=== PATIENT | male | born 1995 | race Caucasian/White ===

== ENCOUNTER 2024-09-17 12:02 | Emergency (ER) | payer OTHER, SELFPAY ==
[2024-09-17] VITALS (52 sets, daily range): BP systolic 96–138; BP diastolic 58–90; PULSE 39–77; RESP 10–42; TEMP 37.3; O2SAT 78–100; BMI 20.5
--- NOTE | 2024-09-17 13:18 | EKG_ITS ---
[address] [address] Test Date: 2024-09-17 Pat Name: Lucio Perez Department: Room: Gender: Male Tax Professional: JULIA : 1995 Requested By: Order Number: [id number] Reading MD: Carlos Rodriguez Measurements Intervals [place] Rate: 41 P: 49 UT: QRS: 99 QRSD: 100 T: 16 QT: 536 QTc: 442 Interpretive Statements Sinus bradycardia Rightward axis T wave abnormality, consider anterior ischemia ED Note documents. Electronically Signed On 09-18-2024 8:32:51 PST by Carlos Rodriguez
[2024-09-17 13:30] LABS: Add Manual Diff / Slide Review NO; Basophils Absolute Auto 0 /uL (0-100); Basophils Percent Auto 0.4 % (0-2); Eosinophils Absolute Auto 0 /uL (0-450); Eosinophils Percent Auto 0.4 % (2-4); Hematocrit 42.8 % (41-53); Hemoglobin 14.5 g/dL (13.5-17.5); Lymphocytes Absolute Auto 1000 /uL (1100-4500); Mean Corpuscular HGB Conc 33.8 % (30-36); Mean Corpuscular Hemoglobin 30.5 PG (26-34); Monocytes Absolute Auto 300 /uL (0-900); Monocytes Percent Auto 4.3 % (3-14); Neutrophils Absolute Auto 5700 /uL (1500-7000); Neutrophils Percent Auto 80.9 % (50-75); Platelet Count 181 X10^3/uL (150-400); Red Blood Cell Count 4.75 X10^6/uL (4.5-5.9); Red Cell Distribution Width 12.7 % (11.6-14.8)
[2024-09-17] MEDS: ONDANSETRON 4 MG/2 ML INJ IV (13:30)
[2024-09-17] MEDS: LORazepam 2 MG/ML INJ 0.5 MG IV (13:30)
--- NOTE | 2024-09-17 13:30 | PC.NURSE ---
Spoke to Neha, Pharmacist, at [facility] @ [id number]. Pt states he consumes 100 tablets of Kratom daily, last dose yesterday per pt. Poison Control advised cardiac labs, liver panel, NS fluids, Benzos for withdrawal symptoms, EKG and potential for seizures. Physician advised of Poison Control advice/feedback. Seizure pads applied to bed.
[2024-09-17 13:43] LABS: Lactate (Lactic Acid) 1.5 mmol/L (0.7-2.1)
[2024-09-17 13:44] LABS: Alanine Aminotransferase 32 IU/L (<50); Albumin 4.4 g/dL (3.5-5.0); Albumin Globulin Ratio 1.6 (1.0-2.8); Alkaline Phosphatase 70 U/L (38-126); Aspartate Aminotransferase 45 IU/L (17-59); BUN Creatinine Ratio 11.8 (6-22); Bilirubin Total 0.5 mg/dL (0.2-1.3); Blood Urea Nitrogen 9 mg/dL (9-20); Calcium 8.6 mg/dL (8.4-10.2); Carbon Dioxide 23 mmol/L (22-32); Chloride 107 mmol/L (98-107); Creatine Kinase 251 U/L (55-170); Estimated Glomerular Filt Rate > 60 mL/min (>60); Globulin 2.7 g/dL (1.7-4.1); Glucose 125 mg/dL (70-100); HEMOLYSIS < 15 (0-50); Lipase 174 U/L (23-300); Potassium 3.3 mmol/L (3.4-5.1); Sodium 139 mmol/L (137-145); Total Protein 7.1 g/dL (6.3-8.2)
[2024-09-17 13:55] LABS: Troponin I < 0.012 ng/mL (0.01-0.034)
[2024-09-17] MEDS: SODIUM CHLORIDE 0.9% 1,000 ML 1000 ML IV (13:55)
--- NOTE | 2024-09-17 14:12 | CM.SWNOTE ---
ED PIANO CASE AND BENCH ASSEMBLER Assessment PIANO CASE AND BENCH ASSEMBLER - Second Facing Baster Assessment PIANO CASE AND BENCH ASSEMBLER/Second Facing Baster Assessment Time Spent with Patient Start date 09/17/24 Visit Start Time 13:40 End date 09/17/24 Visit End Time 13:50 Total time Care Management spent on 10 minutes patient visit-in minutes Substance Abuse Screening Include Onset, Duration, Intensity Presenting Problem Patient presents to ED via POV with family due to concern for withdrawals from Kratom. Patient endorses daily use of 80-100 capsules, last use was last night. Patient endorses he is seeking detox for this. Precipitating Event(s) Patient states he doesn't like Kratom, doesn't like how it makes him feel. Patient states I just want to feel normal . Patient states that Kratom use has impacted his daily functioning. Patient Strengths Patient has support from family, patient is seeking help. Current Behavioral Health Provider(s) None reported Include Facility, Provider, Ph. # Family Hx of Behavioral Abuse None reported Rehab Facilities? ((Date(s), Location(s) No hx ) History of Withdrawal? Seizures? Patient endorses hx of throwing up bile, numbness of fingers, soreness, and fatigue . Patient denies hx of seizures. Patient presents with shakiness. Longest Period of Sobriety Patient states that he has been using Kratom for 4 years. Psychosocial information & Support Patient is 29 y/o male who Systems resides in [facility] with spouse and family. School/Work Unemployed Legal Concerns Legal Matters - Outstanding Issues None reported Mental Status Orientation (Person/Place/Time) A/Ox4 Stated Mood I want to feel normal Affect (Congruent with Mood?) euthymic, fatigued, congruent with mood Thought Content - Specify/Describe None reported Obsessions, Delusions, Hallucinations Thought Processes (Cpbfczu-Vruvjklf-Ilzf goal oriented, coherent Wrjdjpap-Pxvjzyww-Gajllvpjjf- Qstvchedyjvlfp-Okpppaj-Utoamakwemkw- Thought Blocking) Speech (Ekuqvl-Ejtz-Pvlbtji-Rapid-Soft- normal, soft Loud-Pressured) Motor (Waczwt-Qjicueqmc-Jpgv-Other) Patient is laying down under blankets shaking. Insight (Vjkd-Xftk-Znqv/Limited) fair Judgement (Jtox-Fkvw-Nonl/Limited) fair Impulse Control (Adequate-Impaired) adequate Memory (Ufsxcktxj-Spmjao-Gccsza, intact, not formally assessed Impaired-Intact) Concentration (Intact-Impaired) intact Attention (Intact-Impaired) intact Behavior (Appropriate-Inappropriate) appropriate Additional Comment patient presents as calm, cooperative and communicative. Risk Assessment Suicidal Ideation (Plan) No Homicidal Ideation (Plan) No Intervention Intervention PIANO CASE AND BENCH ASSEMBLER enters room to meet with patient in room. Patient endorses he is withdrawing from kratom and seeking detox. Patient endorses that his regular use is impacting daily life and he is wanting to stop using the substance. PIANO CASE AND BENCH ASSEMBLER calls [facility] and it is reported that they can review patient and conduct phone screening. Patient does phone screening process with [facility]. It is the opinion of this PIANO CASE AND BENCH ASSEMBLER that patient would benefit from and is appropriate for detox. PIANO CASE AND BENCH ASSEMBLER reviews this with ED provider Dr. Smith who indicates agreement and understanding. Awaiting medical clearance at this time. Plan RA Plan PIANO CASE AND BENCH ASSEMBLER to seek detox placement for patient upon medical clearance, PIANO CASE AND BENCH ASSEMBLER to fax [facility] clinicals for review upon medical clearance. Paty Bennett, STOCK ASSOCIATE
--- NOTE | 2024-09-17 14:46 | ED_ITS ---
HPI - Abdominal Pain <Luz Smith DO - Last Filed: 09/19/24 07:00> General Chief Complaint: Toxicology Problem Stated Complaint: Withdrawal Symptoms Time Seen by Provider: 09/17/24 14:45 Source: patient Mode of arrival: Ambulatory History of Present Illness HPI narrative: Patient is a 29-year-old male history of polysubstance abuse. He has been using Kartom for about 3 years taking about 100 pills a day. He stopped taking yesterday. He is currently vomiting. Feels very restless taking. He denies any passing out no abdominal pain no shortness of breath no other symptoms. Would like detox Sounds like he is previously used other substances such as heroin Related Data Allergies Allergy/AdvReac Type Severity Reaction Status Date / Time No Known Drug Allergies Allergy Verified 09/17/24 12:18 Patient History <Luz Smith DO - Last Filed: 09/19/24 07:00> Social History Smoking Status: Current every day smoker Smoking Status: Current every day smoker tobacco type: cigarettes Exam <Luz Smith DO - Last Filed: 09/19/24 07:00> Initial Vital Signs Initial Vital Signs: Vital Signs Temperature 99.2 F 09/17/24 12:18 Pulse Rate 53 L 09/17/24 12:18 Respiratory Rate 20 09/17/24 12:18 Blood Pressure 135/90 09/17/24 12:18 Pulse Oximetry 98 09/17/24 12:18 Oxygen Delivery Method Room Air 09/17/24 12:18 GENERAL: and in [no acute] distress. HEENT: Head atraumatic,EOMI, pupils reactive, face symmetric, [moist] mucous membranes CARDIOVASCULAR: Regular rate and rhythm without murmurs, rubs or gallops. RESPIRATORY: Breath sounds equal bilaterally, no wheezes rales or rhonchi. ABDOMEN: Soft, nontender. Normoactive bowel sounds all 4 quadrants. No guarding or rebound. EXTREMITIES: Normal range of motion, no clubbing or edema. Neurovascularly intact NEUROLOGICAL: Alert and oriented x4.Normal gait and speech. Cranial nerves II through XII grossly intact. SKIN: Warm, dry, no laceration, no petechiae, no rashes or lesions. <Mani Domínguez MD - Last Filed: 09/18/24 14:18> Initial Vital Signs Initial Vital Signs: Vital Signs Temperature 99.2 F 09/17/24 12:18 Pulse Rate 53 L 09/17/24 12:18 Respiratory Rate 20 09/17/24 12:18 Blood Pressure 135/90 09/17/24 12:18 Pulse Oximetry 98 09/17/24 12:18 Oxygen Delivery Method Room Air 09/17/24 12:18 Course <Luz Smith DO - Last Filed: 09/19/24 07:00> Orders Ordered: Discontinued Medications Sodium Chloride (Normal Saline 0.9%) 1,000 mls @ 1,000 mls/hr IV BOLUS ONE Stop: 09/17/24 14:19 Last Infusion: 09/17/24 15:40 Dose: Infused Documented By: Admin: 09/17/24 13:55 Dose: 1,000 mls/hr Documented By: GUSTAVO Lorazepam (Lorazepam 2 Mg/Ml Inj) 0.5 mg IV NOW ONE Stop: 09/17/24 13:21 Last Admin: 09/17/24 13:30 Dose: 0.5 mg Documented By: GUSTAVO Lorazepam (Lorazepam 2 Mg/Ml Inj) 1 mg IV NOW ONE Stop: 09/17/24 16:46 Last Admin: 09/17/24 16:49 Dose: 1 mg Documented By: KAROL Lorazepam (Lorazepam 0.5 Mg Tablet) 1 mg PO NOW ONE Stop: 09/17/24 19:10 Last Admin: 09/17/24 19:21 Dose: 1 mg Documented By: AARTI Lorazepam (Lorazepam 2 Mg/Ml Inj) 1 mg IV Q2HR PRN PRN Reason: Agitation Last Admin: 09/17/24 22:57 Dose: 1 mg Documented By: Admin: 09/17/24 20:54 Dose: 1 mg Documented By: AARTI Lorazepam (Lorazepam 0.5 Mg Tablet) 1 mg PO NOW ONE Stop: 09/18/24 04:41 Last Admin: 09/18/24 04:45 Dose: 1 mg Documented By: DIDIER Ondansetron HCl (Ondansetron 4 Mg/2 Ml Inj) 4 mg IV NOW ONE Stop: 09/17/24 13:21 Last Admin: 09/17/24 13:30 Dose: 4 mg Documented By: GUSTAVO Potassium Chloride (Potassium Chloride 20 Meq/15 Ml Udc) 40 meq PO NOW ONE Stop: 09/17/24 19:45 Last Admin: 09/17/24 20:53 Dose: 40 meq Documented By: LS Vital Signs Vital signs: Vital Signs - 8 hr 09/17/24 21:00 09/17/24 21:00 09/17/24 21:15 Pulse Rate 44 L 77 Respiratory Rate 36 H 33 H Blood Pressure 122/81 Pulse Oximetry Oxygen Delivery Method 09/17/24 21:15 09/17/24 21:30 09/17/24 21:30 Pulse Rate 52 L Respiratory Rate 22 Blood Pressure 134/88 129/82 Pulse Oximetry Oxygen Delivery Method 09/17/24 21:32 09/17/24 21:45 09/17/24 21:48 Pulse Rate 64 60 Respiratory Rate 28 H Blood Pressure 115/63 Pulse Oximetry 78 L Oxygen Delivery Method 09/17/24 22:00 09/17/24 22:01 09/17/24 22:01 Pulse Rate 47 L 50 L Respiratory Rate 29 H 25 H Blood Pressure 128/80 Pulse Oximetry 97 94 Oxygen Delivery Method Room Air Room Air 09/17/24 22:15 09/17/24 22:15 09/17/24 22:30 Pulse Rate 51 L 47 L Respiratory Rate 23 24 Blood Pressure 103/58 L Pulse Oximetry 97 96 Oxygen Delivery Method Room Air Room Air 09/17/24 22:30 09/17/24 22:30 09/17/24 22:45 Pulse Rate 47 L 47 L Respiratory Rate 22 24 Blood Pressure 114/62 Pulse Oximetry 97 98 Oxygen Delivery Method Room Air Room Air 09/17/24 22:45 09/17/24 23:00 09/17/24 23:00 Pulse Rate 48 L Respiratory Rate 22 Blood Pressure 119/75 115/62 Pulse Oximetry 96 Oxygen Delivery Method Room Air 09/17/24 23:15 09/17/24 23:15 09/17/24 23:30 Pulse Rate 49 L Respiratory Rate 24 Blood Pressure 122/68 114/59 L Pulse Oximetry 99 Oxygen Delivery Method Room Air 09/17/24 23:30 09/17/24 23:45 09/17/24 23:45 Pulse Rate 52 L 54 L Respiratory Rate 24 14 Blood Pressure 110/61 Pulse Oximetry 99 97 Oxygen Delivery Method Room Air Room Air 09/18/24 00:00 09/18/24 00:01 09/18/24 00:01 Pulse Rate 60 86 Respiratory Rate 14 14 Blood Pressure 118/76 Pulse Oximetry 97 97 Oxygen Delivery Method Room Air Room Air 09/18/24 00:15 09/18/24 00:15 09/18/24 00:30 Pulse Rate 47 L Respiratory Rate 16 Blood Pressure 122/74 119/76 Pulse Oximetry 94 Oxygen Delivery Method Room Air 09/18/24 00:30 09/18/24 00:45 09/18/24 00:45 Pulse Rate 50 L 50 L Respiratory Rate 33 H 32 H Blood Pressure 122/78 Pulse Oximetry 97 94 Oxygen Delivery Method Room Air Room Air 09/18/24 01:00 09/18/24 01:00 09/18/24 01:15 Pulse Rate 50 L 52 L Respiratory Rate 24 30 H Blood Pressure 114/74 Pulse Oximetry 97 95 Oxygen Delivery Method Room Air Room Air 09/18/24 01:15 09/18/24 01:30 09/18/24 01:30 Pulse Rate 51 L Respiratory Rate 28 H Blood Pressure 125/70 108/64 Pulse Oximetry 97 Oxygen Delivery Method Room Air 09/18/24 01:45 09/18/24 01:45 09/18/24 02:00 Pulse Rate 49 L Respiratory Rate 24 Blood Pressure 125/67 115/58 L Pulse Oximetry 97 Oxygen Delivery Method Room Air 09/18/24 02:15 09/18/24 02:15 09/18/24 02:30 Pulse Rate 52 L 47 L Respiratory Rate Blood Pressure 105/69 Pulse Oximetry Oxygen Delivery Method 09/18/24 02:30 09/18/24 02:45 09/18/24 02:45 Pulse Rate 52 L Respiratory Rate 28 H Blood Pressure 108/67 114/62 Pulse Oximetry Oxygen Delivery Method 09/18/24 03:00 09/18/24 03:00 09/18/24 03:15 Pulse Rate 53 L Respiratory Rate 18 Blood Pressure 111/55 L 113/60 Pulse Oximetry Oxygen Delivery Method 09/18/24 03:15 09/18/24 03:26 09/18/24 03:30 Pulse Rate 51 L 46 L Respiratory Rate 20 18 Blood Pressure 113/70 Pulse Oximetry Oxygen Delivery Method <Mani Domínguez MD - Last Filed: 09/18/24 14:18> Orders Ordered: Discontinued Medications Sodium Chloride (Normal Saline 0.9%) 1,000 mls @ 1,000 mls/hr IV BOLUS ONE Stop: 09/17/24 14:19 Last Infusion: 09/17/24 15:40 Dose: Infused Documented By: Admin: 09/17/24 13:55 Dose: 1,000 mls/hr Documented By: GUSTAVO Lorazepam (Lorazepam 2 Mg/Ml Inj) 0.5 mg IV NOW ONE Stop: 09/17/24 13:21 Last Admin: 09/17/24 13:30 Dose: 0.5 mg Documented By: GUSTAVO Lorazepam (Lorazepam 2 Mg/Ml Inj) 1 mg IV NOW ONE Stop: 09/17/24 16:46 Last Admin: 09/17/24 16:49 Dose: 1 mg Documented By: KAROL Lorazepam (Lorazepam 0.5 Mg Tablet) 1 mg PO NOW ONE Stop: 09/17/24 19:10 Last Admin: 09/17/24 19:21 Dose: 1 mg Documented By: AARTI Lorazepam (Lorazepam 2 Mg/Ml Inj) 1 mg IV Q2HR PRN PRN Reason: Agitation Last Admin: 09/17/24 22:57 Dose: 1 mg Documented By: Admin: 09/17/24 20:54 Dose: 1 mg Documented By: AARTI Lorazepam (Lorazepam 0.5 Mg Tablet) 1 mg PO NOW ONE Stop: 09/18/24 04:41 Last Admin: 09/18/24 04:45 Dose: 1 mg Documented By: DIDIER Ondansetron HCl (Ondansetron 4 Mg/2 Ml Inj) 4 mg IV NOW ONE Stop: 09/17/24 13:21 Last Admin: 09/17/24 13:30 Dose: 4 mg Documented By: GUSTAVO Potassium Chloride (Potassium Chloride 20 Meq/15 Ml Udc) 40 meq PO NOW ONE Stop: 09/17/24 19:45 Last Admin: 09/17/24 20:53 Dose: 40 meq Documented By: AARTI Vital Signs Vital signs: Vital Signs - 8 hr 09/17/24 21:00 09/17/24 21:00 09/17/24 21:15 Pulse Rate 44 L 77 Respiratory Rate 36 H 33 H Blood Pressure 122/81 Pulse Oximetry Oxygen Delivery Method 09/17/24 21:15 09/17/24 21:30 09/17/24 21:30 Pulse Rate 52 L Respiratory Rate 22 Blood Pressure 134/88 129/82 Pulse Oximetry Oxygen Delivery Method 09/17/24 21:32 09/17/24 21:45 09/17/24 21:48 Pulse Rate 64 60 Respiratory Rate 28 H Blood Pressure 115/63 Pulse Oximetry 78 L Oxygen Delivery Method 09/17/24 22:00 09/17/24 22:01 09/17/24 22:01 Pulse Rate 47 L 50 L Respiratory Rate 29 H 25 H Blood Pressure 128/80 Pulse Oximetry 97 94 Oxygen Delivery Method Room Air Room Air 09/17/24 22:15 09/17/24 22:15 09/17/24 22:30 Pulse Rate 51 L 47 L Respiratory Rate 23 24 Blood Pressure 103/58 L Pulse Oximetry 97 96 Oxygen Delivery Method Room Air Room Air 09/17/24 22:30 09/17/24 22:30 09/17/24 22:45 Pulse Rate 47 L 47 L Respiratory Rate 22 24 Blood Pressure 114/62 Pulse Oximetry 97 98 Oxygen Delivery Method Room Air Room Air 09/17/24 22:45 09/17/24 23:00 09/17/24 23:00 Pulse Rate 48 L Respiratory Rate 22 Blood Pressure 119/75 115/62 Pulse Oximetry 96 Oxygen Delivery Method Room Air 09/17/24 23:15 09/17/24 23:15 09/17/24 23:30 Pulse Rate 49 L Respiratory Rate 24 Blood Pressure 122/68 114/59 L Pulse Oximetry 99 Oxygen Delivery Method Room Air 09/17/24 23:30 09/17/24 23:45 09/17/24 23:45 Pulse Rate 52 L 54 L Respiratory Rate 24 14 Blood Pressure 110/61 Pulse Oximetry 99 97 Oxygen Delivery Method Room Air Room Air 09/18/24 00:00 09/18/24 00:01 09/18/24 00:01 Pulse Rate 60 86 Respiratory Rate 14 14 Blood Pressure 118/76 Pulse Oximetry 97 97 Oxygen Delivery Method Room Air Room Air 09/18/24 00:15 09/18/24 00:15 09/18/24 00:30 Pulse Rate 47 L Respiratory Rate 16 Blood Pressure 122/74 119/76 Pulse Oximetry 94 Oxygen Delivery Method Room Air 09/18/24 00:30 09/18/24 00:45 09/18/24 00:45 Pulse Rate 50 L 50 L Respiratory Rate 33 H 32 H Blood Pressure 122/78 Pulse Oximetry 97 94 Oxygen Delivery Method Room Air Room Air 09/18/24 01:00 09/18/24 01:00 09/18/24 01:15 Pulse Rate 50 L 52 L Respiratory Rate 24 30 H Blood Pressure 114/74 Pulse Oximetry 97 95 Oxygen Delivery Method Room Air Room Air 09/18/24 01:15 09/18/24 01:30 09/18/24 01:30 Pulse Rate 51 L Respiratory Rate 28 H Blood Pressure 125/70 108/64 Pulse Oximetry 97 Oxygen Delivery Method Room Air 09/18/24 01:45 09/18/24 01:45 09/18/24 02:00 Pulse Rate 49 L Respiratory Rate 24 Blood Pressure 125/67 115/58 L Pulse Oximetry 97 Oxygen Delivery Method Room Air 09/18/24 02:15 09/18/24 02:15 09/18/24 02:30 Pulse Rate 52 L 47 L Respiratory Rate Blood Pressure 105/69 Pulse Oximetry Oxygen Delivery Method 09/18/24 02:30 09/18/24 02:45 09/18/24 02:45 Pulse Rate 52 L Respiratory Rate 28 H Blood Pressure 108/67 114/62 Pulse Oximetry Oxygen Delivery Method 09/18/24 03:00 09/18/24 03:00 09/18/24 03:15 Pulse Rate 53 L Respiratory Rate 18 Blood Pressure 111/55 L 113/60 Pulse Oximetry Oxygen Delivery Method 09/18/24 03:15 09/18/24 03:26 09/18/24 03:30 Pulse Rate 51 L 46 L Respiratory Rate 20 18 Blood Pressure 113/70 Pulse Oximetry Oxygen Delivery Method MDM - Abdominal Pain <Luz Smith, DO - Last Filed: 09/19/24 07:00> Lab Data 09/17/24 13:20 09/17/24 13:20 Labs: Lab Results 09/17/24 09/17/24 Range/Units 13:20 14:33 WBC 7.0 (4.5-11.0) X10^3/uL RBC 4.75 (4.5-5.9) X10^6/uL Hgb 14.5 (13.5-17.5) g/dL Hct 42.8 (41-53) % MCV 90.0 (80-100) fL MCH 30.5 (26-34) PG MCHC 33.8 (30-36) % RDW 12.7 (11.6-14.8) % Plt Count 181 (150-400) X10^3/uL Neut % (Auto) 80.9 H (50-75) % Lymph % (Auto) 14.0 L (25-40) % [place]ett % (Auto) 4.3 (3-14) % Eos % (Auto) 0.4 L (2-4) % Baso % (Auto) 0.4 (0-2) % Neut # (Auto) 5700 (2149-0692) /uL Lymph # (Auto) 1000 L (1515-5386) /uL Burnett # (Auto) 300 (0-900) /uL Eos # (Auto) 0 (0-450) /uL Baso # (Auto) 0 (0-100) /uL Sodium 139 (137-145) mmol/L Potassium 3.3 L (3.4-5.1) mmol/L Chloride 107 (98-107) mmol/L Carbon Dioxide 23 (22-32) mmol/L BUN 9 (9-20) mg/dL Creatinine 0.76 (0.66-1.25) mg/dL Estimated GFR > 60 (>60) mL/min BUN/Creatinine Ratio 11.8 (6-22) Glucose 125 H (70-100) mg/dL Lactate 1.5 (0.7-2.1) mmol/L Calcium 8.6 (8.4-10.2) mg/dL Total Bilirubin 0.5 (0.2-1.3) mg/dL AST 45 (17-59) IU/L ALT 32 (<50) IU/L Alkaline Phosphatase 70 (38-126) U/L Total Creatine Kinase 251 H (55-170) U/L Troponin I < 0.012 (0.01-0.034) ng/mL Total Protein 7.1 (6.3-8.2) g/dL Albumin 4.4 (3.5-5.0) g/dL Globulin 2.7 (1.7-4.1) g/dL Albumin/Globulin Ratio 1.6 (1.0-2.8) Lipase 174 (23-300) U/L Salicylates < 1.0 (<20) mg/dL U Opiates 300ng/mL cut Negative (Negative) Ur Oxycodone Screen Negative (Negative) Urine Methadone Screen Negative (Negative) Acetaminophen < 10 (10-30) ug/mL Ur Barbiturates Screen Negative (Negative) U Tricyclic Antidepress Negative (Negative) Ur Phencyclidine Scrn Negative (Negative) Ur Amphetamines Screen Negative (Negative) U Methamphetamines Scrn Negative (Negative) Ur MDMA Scrn (Ecstasy) Negative (Negative) U Benzodiazepines Scrn Negative (Negative) Urine Cocaine Screen Negative (Negative) U Marijuana (THC) Screen Positive H (Negative) Urine pH Normal (Normal) Urine Specific [place] Normal (Normal) Ethyl Alcohol < 10 ( - 10) mg/dL Ur Creatinine Normal (Normal) ECG Data Attestation: I personally reviewed and interpreted this ECG as follows: Interpretation: Sinus bradycardia rate 41 T-wave inversion in V1 V2 V3 no priors to compare no ST changes no AV cristy block QTC is 442 MDM Narrative Medical decision making narrative: Patient 29-year-old male wanting detox from [facility], presenting today with twitching nausea vomiting. Blood work has been reviewed CBC shows WBC 7.0 hemoglobin 14.5 hematocrit 428 platelets 181 CMP sodium 139 potassium 3.3 chloride 103 carbon dioxide 23 BUN 9 creatinine 0.76 glucose 125 lactate 1.5 CPK 251 troponin negative lipase 174 Toxicology positive for marijuana negative for alcohol salicylate and acetaminophen EKGs does show sinus bradycardia no prolonged QTC no AV cristy block there is some T-wave inversion noted in V1 through V3 unclear of significant Patient is noted to be intermittently bradycardic but does not stay in the 30s quickly pops back up into the 40s. This has actually improved during his time in the ED. He has no syncope no obvious block He is requesting detox. Social work is involved <Mani Domínguez MD - Last Filed: 09/18/24 14:18> Lab Data Labs: Lab Results 09/17/24 09/17/24 Range/Units 13:20 14:33 WBC 7.0 (4.5-11.0) X10^3/uL RBC 4.75 (4.5-5.9) X10^6/uL Hgb 14.5 (13.5-17.5) g/dL Hct 42.8 (41-53) % MCV 90.0 (80-100) fL MCH 30.5 (26-34) PG MCHC 33.8 (30-36) % RDW 12.7 (11.6-14.8) % Plt Count 181 (150-400) X10^3/uL Neut % (Auto) 80.9 H (50-75) % Lymph % (Auto) 14.0 L (25-40) % Burnett % (Auto) 4.3 (3-14) % Eos % (Auto) 0.4 L (2-4) % Baso % (Auto) 0.4 (0-2) % Neut # (Auto) 5700 (0856-3933) /uL Lymph # (Auto) 1000 L (2402-8651) /uL Burnett # (Auto) 300 (0-900) /uL Eos # (Auto) 0 (0-450) /uL Baso # (Auto) 0 (0-100) /uL Sodium 139 (137-145) mmol/L Potassium 3.3 L (3.4-5.1) mmol/L Chloride 107 (98-107) mmol/L Carbon Dioxide 23 (22-32) mmol/L BUN 9 (9-20) mg/dL Creatinine 0.76 (0.66-1.25) mg/dL Estimated GFR > 60 (>60) mL/min BUN/Creatinine Ratio 11.8 (6-22) Glucose 125 H (70-100) mg/dL Lactate 1.5 (0.7-2.1) mmol/L Calcium 8.6 (8.4-10.2) mg/dL Total Bilirubin 0.5 (0.2-1.3) mg/dL AST 45 (17-59) IU/L ALT 32 (<50) IU/L Alkaline Phosphatase 70 (38-126) U/L Total Creatine Kinase 251 H (55-170) U/L Troponin I < 0.012 (0.01-0.034) ng/mL Total Protein 7.1 (6.3-8.2) g/dL Albumin 4.4 (3.5-5.0) g/dL Globulin 2.7 (1.7-4.1) g/dL Albumin/Globulin Ratio 1.6 (1.0-2.8) Lipase 174 (23-300) U/L Salicylates < 1.0 (<20) mg/dL U Opiates 300ng/mL cut Negative (Negative) Ur Oxycodone Screen Negative (Negative) Urine Methadone Screen Negative (Negative) Acetaminophen < 10 (10-30) ug/mL Ur Barbiturates Screen Negative (Negative) U Tricyclic Antidepress Negative (Negative) Ur Phencyclidine Scrn Negative (Negative) Ur Amphetamines Screen Negative (Negative) U Methamphetamines Scrn Negative (Negative) Ur MDMA Scrn (Ecstasy) Negative (Negative) U Benzodiazepines Scrn Negative (Negative) Urine Cocaine Screen Negative (Negative) U Marijuana (THC) Screen Positive H (Negative) Urine pH Normal (Normal) Urine Specific [place] Normal (Normal) Ethyl Alcohol < 10 ( - 10) mg/dL Ur Creatinine Normal (Normal) MDM Narrative Medical decision making narrative: Patient 29-year-old male wanting detox from [facility], presenting today with twitching nausea vomiting. Blood work has been reviewed CBC shows WBC 7.0 hemoglobin 14.5 hematocrit 428 platelets 181 CMP sodium 139 potassium 3.3 chloride 103 carbon dioxide 23 BUN 9 creatinine 0.76 glucose 125 lactate 1.5 CPK 251 troponin negative lipase 174 Toxicology positive for marijuana negative for alcohol salicylate and acetaminophen EKGs does show sinus bradycardia no prolonged QTC no AV cristy block there is some T-wave inversion noted in V1 through V3 unclear of significant Patient is noted to be intermittently bradycardic but does not stay in the 30s quickly pops back up into the 40s. This has actually improved during his time in the ED. He has no syncope no obvious block He is requesting detox. Social work is involved 09/17/24, 1830, Sang. 29-year-old male possibly withdrawing from kratom, takes 100 tablets daily, has had nausea with nonbloody emesis, noted to have transient low heart rate, no AV block. Requests detox services, being evaluated by [facility]. Some agitation, oral Ativan ordered. Assumed interim care. Potassium 3.3 low, not yet treated, oral potassium ordered 0200, Patient accepted for placement at [facility], transportation later this morning [phone], [place] home, will be contacted later this morning for [facility] intake, no longer receiving Ativan for last few hours, home with family Discharge Plan Departure Patient Disposition: Home Clinical Impression: Acute drug withdrawal syndrome Activity Restrictions/Additional Instructions: History of kratom use, and possible withdrawal symptoms, treated with serial doses of Ativan overnight. web services architect consult. Plan for phone call later this morning 0800, to further coordinate intake timing for detox services. Await phone call later this morning, return to this/nearest emergency department for any change worsening symptoms or any concerns prior Stand Alone Forms: Patient Portal/API/Survey
[2024-09-17 14:49] LABS: UR Morphine/Opiate cutoff 300 Negative (Negative); Ur Creatinine Normal (Normal); Ur Specific Gravity Normal (Normal); Urine Amphetamines Negative (Negative); Urine Barbiturates Negative (Negative); Urine Benzodiazepines Negative (Negative); Urine Cocaine Negative (Negative); Urine MDMA Negative (Negative); Urine Methadone Negative (Negative); Urine Methamphetamines Negative (Negative); Urine Oxycodone Negative (Negative); Urine Phencyclidine Negative (Negative); Urine Tetrahydrocannabinol Positive (Negative); Urine Tricyclic Antidepressant Negative (Negative); Urine pH Normal (Normal)
--- NOTE | 2024-09-17 14:49 | CM.SWNOTE ---
ED COLLATOR Note COLLATOR calls [facility] and leaves asking if they take patient's withdrawing from [facility] and inquires if they have beds. COLLATOR calls [facility] and it is reported that they do not take patient's insurance. COLLATOR calls [facility] and leaves . COLLATOR calls [facility], it is reported that they have beds. Patient conducts phone screening with [facility]. Awaiting medical clearance at this time to fax records to [facility] for their review of patient. Paty Bennett, MULTI SKILLED OPERATOR
--- NOTE | 2024-09-17 14:52 | PC.NURSE ---
Pt continues to have HR between 36-44, physician aware. No new orders.
[2024-09-17 15:01] LABS: Acetaminophen < 10 ug/mL (10-30); Ethanol (ETOH) < 10 mg/dL; Salicylate < 1.0 mg/dL (<20)
[2024-09-17] MEDS: LORazepam 2 MG/ML INJ 1 MG IV ×3 (16:49→22:57)
--- NOTE | 2024-09-17 18:00 | PC.NURSE ---
HR monitor continues to read 38-46 BPM. Physician aware, no new orders. Pt AOx4, at bedside.
--- NOTE | 2024-09-17 18:31 | EKG_ITS ---
[address] [address] Test Date: 2024-09-17 Pat Name: Lucio Perez Department: Room: Gender: Male [employer] Header: JULIA : 1995 Requested By: Order Number: [id number] Reading MD: Carlos Rodriguez Measurements Intervals [place] Rate: 42 P: 64 MO: 152 QRS: 81 QRSD: 84 T: 69 QT: 522 QTc: 435 Interpretive Statements Marked sinus bradycardia with sinus arrhythmia Anteroseptal infarct , age undetermined Electronically Signed On 09-18-2024 8:30:42 PST by Carlos Rodriguez
--- NOTE | 2024-09-17 19:07 | PC.NURSE ---
Spoke with Poison Control. Advised to continue to monitor until d/c. Pt medically cleared for [facility].
--- NOTE | 2024-09-17 19:15 | PC.NURSE ---
Pt lying in ED stretcher, noticeably restless, but in no obvious distress. remains at bedside. Pt remains connected to cardiac, resp, blood pressure, and pulse ox monitors with alarms on and audible. Call light within reach.
[2024-09-17] MEDS: LORazepam 0.5 MG TABLET 1 MG PO (19:21)
--- NOTE | 2024-09-17 20:15 | PC.NURSE ---
No change in patient condition or status. Pt restless lying in ED stretcher. No distress noted at this time. Pt remains connected to cardiac, resp, blood pressure, and pulse ox monitors with alarms on and audible. Call light within reach.
--- NOTE | 2024-09-17 20:23 | PC.NURSE ---
This WASTEWATER TECHNICIAN called [facility] facility to inquire about the progress of this patient's intake. Talked with intake and they stated that they're waiting for their provider to approve status @ 2020.
[2024-09-17] MEDS: POTASSIUM CHLORIDE 20 MEQ/15 ML UDC 40 MEQ PO (20:53)
--- NOTE | 2024-09-17 21:11 | PC.NURSE ---
Rcv'd call from poison control for updates.
--- NOTE | 2024-09-17 21:12 | PC.NURSE ---
No change in patient condition or status. Pt remains restless but less so since most recent dose of ativan. Pt remains connected to cardiac, resp, blood pressure, and pulse ox monitors with alarms on and audible. Call light within reach. remains at bedside. No distress noted at this time. No complaints or requests at this time.
--- NOTE | 2024-09-17 22:15 | PC.NURSE ---
No change in patient condition or status. Pt remains restless in ED stretcher, but not to previous extent. No distress noted at this time. Pt remains connected to cardiac, resp, blood pressure, and pulse ox monitors with alarms on and audible. Call light within reach. remains at bedside.
--- NOTE | 2024-09-17 22:40 | PC.NURSE ---
Called [facility] to see where we are in the process of trying to get patient admitted. Intake states that they never received medical records packet from day shift. This FORENSIC DOCUMENT EXAMINER faxed doc note with labs and nurse note at 1040.
--- NOTE | 2024-09-17 23:15 | PC.NURSE ---
Pt resting quietly with eyes closed, resps even and not labored. No distress noted at this time. Pt more restful than previously. Pt remains connected to cardiac, resp, pulse ox, and blood pressure monitors with alarms on and audible. Call light within reach. remains at bedside.
[2024-09-18] VITALS (17 sets, daily range): BP systolic 105–125; BP diastolic 55–78; PULSE 46–86; RESP 14–33; O2SAT 94–97
--- NOTE | 2024-09-18 00:15 | PC.NURSE ---
No change in patient condition or status. Pt resting quietly with eyes closed, resps even and not labored. No distress noted at this time. Pt remains connected to cardiac, resp, blood pressure, and pulse ox monitors with alarms on and audible. Call light within reach. remains at bedside.
--- NOTE | 2024-09-18 01:15 | PC.NURSE ---
No change in patient condition or status. Pt resting quietly with eyes closed, resps even and not labored. No distress noted at this time. Pt remains connected to cardiac, reps, blood pressure, and pulse ox monitors with alarms on and audible. Call light within reach. remains at bedside.
--- NOTE | 2024-09-18 02:02 | PC.NURSE ---
Call from poison control to update status and close case on that end at this time.
--- NOTE | 2024-09-18 03:04 | PC.NURSE ---
Karthik from [facility] called to inform that patient has been accepted but not until day shift. Was unable to give time for admission intake d/t day shift staffing but states to call at [phone] for update.
[2024-09-18] MEDS: LORazepam 0.5 MG TABLET 1 MG PO (04:45)
== END 2024-09-18 04:52 | disposition home or self-care (01) ==
PROVIDERS: Emergency Medicine; Emergency Provider Emergency Medicine
DX: F19.939 Other psychoactive substance use, unspecified with withdrawal, unspecified (principal)
CPT/HCPCS: 36415; 80053; 80305; 80320; 80329; 82550; 83605; 83690; 84484; 85025; 93005; 96361; 96374; 96375; 96376; 99284; G0480; J2060; J2405